=== PATIENT | female | born 1980 | race Hispanic/Latino ===

== ENCOUNTER 2023-12-07 20:24 | Emergency (ER) | payer MEDICAID, SELFPAY ==
[2023-12-07 20:29] VITALS: BP 123/90
[2023-12-07 20:52] VITALS: BMI 19.0
[2023-12-07] MEDS: ZOFRAN ODT (ORALLY DISINTEGRATING) 4 MG PO (21:22)
--- NOTE | 2023-12-07 21:24 | ED.GENMED ---
History of Present Illness
General
Chief Complaint: Withdrawal Symptoms
Source: patient
Exam Limitations: none
Time Seen by Provider: 12/07/23 20:56
Nursing documentation reviewed up to this point in time: agreed with
History of Present Illness
History of Present Illness:
43-year-old female long history of narcotic use, previously on heroin had been maintained on methadone, admitted to [facility] recently with a stroke with left-sided weakness and possible seizure, was switched to Suboxone, tells me she believes
that she is withdrawing because she is not getting enough was told that she will have an increased dose starting tomorrow, feels nauseous that she cannot vomit body aches similar to her prior narcotic withdrawal
10:12 PM reviewed with sister at bedside, patient was just discharged from [facility] earlier today, daughter picked her up, not given any prescriptions for plan per the sister, has no meds for her chronic narcotic use
Past History
Past History
ED Past Medical History: HTN and Psychiatric
ED Past Surgical History: None
Social History
Tobacco: Smoker
Alcohol: None
Drug: Narcotics and IVDA
Personal: Single
Living: with family
Review of Systems
Review of Systems
All Other Systems: Not applicable
Constitutional: Reports fatigue
EENT: Reports no symptoms
Respiratory: Reports no symptoms
Cardiac: Reports no symptoms
ABD/GI: Reports nausea and vomiting
: Reports no symptoms
Musculoskeletal: Reports muscle pain and muscle stiffness
Skin: Reports no symptoms
Neurological: Reports weakness
Phy Exam
Physical Exam
Physical Exam:
Physical Exam
General: 43 female appears older than stated age
Neck: No jaundice
Heart: Regular
Lungs: no acute respiratory distress.
Abdomen: Nontender
Neuro: alert and oriented. Left-sided weak
Skin: no rash
Psychiatric: cooperative
Extremities: No cyanosis
Course
Orders/Labs/Results
Orders:
Orders
12/07/23 21:15
Ondansetron Injectable [Zofran] 4 mg IV NOW STA
12/07/23 21:18
Alcohol Urgent
Basic Metabolic Panel Urgent
Complete Blood Count/With Diff Urgent
Fentanyl, Urine Urgent
Urine Drug Abuse Screen Urgent
Date Specimen was Collected: 12/07/23
Time Specimen was Collected: 20:51
12/07/23 21:21
Ondansetron Orally Disint [Zofran Odt (Orally Disintegrating)] 4 mg .ROUTE .STK-MED ONE
Ondansetron Orally Disint [Zofran Odt (Orally Disintegrating)] 4 mg PO NOW STA
12/07/23 22:09
Buprenorphine [Subutex] 8 mg SL NOW STA
Abnormal Lab Results
12/07/23
21:18
WBC 12.4 H 10^3/uL
(4.8-10.8)
RBC 3.71 L 10^6/uL
(4.20-5.40)
Hgb 11.4 L g/dL
(12.0-16.0)
Hct 32.0 L %
(37.0-47.0)
Plt Count 449 H 10^3/uL
(130-400)
Abs Immat Gran (auto) 0.1 H 10^3/uL
(0-0.05)
Absolute Neuts (auto) 9.4 H 10^3/uL
(1.4-6.5)
Absolute Monos (auto) 0.8 H 10^3/uL
(0.1-0.6)
Neutrophils % 75.6 H %
(42.2-75.2)
Lymphocytes % 15.7 L %
(20.5-51.1)
Glucose 109 H mg/dl
(70-99)
Urine Methadone Screen Positive H
(Negative)
Urine Fentanyl Screen Positive H
(Negative)
12/07/23 21:18
12/07/23 21:18
Vital Signs
Initial and Last Documented VS:
Initial Vital Signs
Temp Pulse Resp BP Pulse Ox
98.2 F 118 18 123/90 98
12/07/23 20:29 12/07/23 20:29 12/07/23 20:29 12/07/23 20:29 12/07/23 20:29
Last Documented Vital Signs
Temp Pulse Resp BP Pulse Ox
98.2 F 108 18 120/82 99
12/07/23 20:29 12/07/23 21:59 12/07/23 21:59 12/07/23 21:59 12/07/23 21:59
MDM/Problems Addressed
Differential Diagnosis Includes:
Narcotic withdrawal narcotic dependence, dehydration electrolyte abnormality
MDM/Problems Addressed:
Nausea narcotic withdrawal
Chronic conditions affecting care: Neurological disorder and Psychiatric illness
Acute Exacerbation and/or Progression of Chronic Illness: Neurological disorder and Psychiatric illness
*Pulse Oximetry
Patient hypoxic: no
*Critical Care Note
Total Time (30-74mins, 75-104mins- exclusive of procedures): Not Applicable
Update Note
Update Note:
Update patient chronically ill appearing, states has been on a low dose Subutex, previously on methadone she states her symptoms are fairly well-controlled on methadone although she did relapse prior to her admission to [facility], I was audrey with her
that I will not be changing her dose of her chronic narcotics this evening, will try to get her more comfortable, encouraged her to follow-up with her providers at [facility]
Junior winkler has been notified
Outpatient arrangements preliminarily have been arranged to [facility] and talk with her sister
ED Attending Note
-
Portions of this chart may have been created with voice recognition software.� Occasional wrong word or��sound alike� substitutions may have occurred due to the inherent limitations of voice recognition software.
Discharge Plan
Departure
Patient Disposition: Home (Routine Discharge)
Date of Disposition: 12/07/23
Time of Disposition: 22:24
Patient with high blood pressure during this ER visit?: No
Condition: Good
Discharge Problem:
Narcotic withdrawal
Instructions: Drug Misuse and Addiction (DC)
Prescriptions:
No Action
methadone [Methadose] 100 MG/10 ML concentrate
150 mg PO DAILY
Referrals:
NONE,* [Family Provider] -
Interventions
Interventions:
*Risk Screen - Suicide Last Done: 12/07/23 20:29
*General Assessment Last Done: 12/07/23 20:29
*Neglect/Abuse Screening Last Done: 12/07/23 20:29
ED- Neurological Assessment Last Done: 12/07/23 20:52
ED-Psychological Assessment Last Done: 12/07/23 21:59
Discharge Date and Time
Print Language: KYRGYZ
[2023-12-07 21:33] LABS: % Immature Granulocytes 0.5 % (0-0.5); % Lymphocytes 15.7 % (20.5-51.1); % Monocytes 6.2 % (1.7-9.3); % Neutrophils 75.6 % (42.2-75.2); Absolute Basophils 0.1 10^3/uL (0-0.2); Absolute Eosinophils 0.1 10^3/uL (0-0.7); Absolute Immature Granulocytes 0.1 10^3/uL (0-0.05); Absolute Monocytes 0.8 10^3/uL (0.1-0.6); Absolute Neutrophils 9.4 10^3/uL (1.4-6.5); Hemoglobin 11.4 g/dL (12.0-16.0); Mean Corp Hgb Conc. 35.6 g/dL (33.0-37.0); Mean Corpuscular Hgb 30.7 pg (27.0-31.0); Mean Corpuscular Volume 86.3 fL (81.0-99.0); Nucleated Red Blood Cells % 0 %; Red Blood Cell Count 3.71 10^6/uL (4.20-5.40); Red Cell Dist. Width 14.3 % (11.5-14.5); White Blood Cell Count 12.4 10^3/uL (4.8-10.8)
[2023-12-07 21:43] LABS: Amphetamines Negative (Negative); Barbiturates Negative (Negative); Benzodiazepines Negative (Negative); Buprenorphine Negative (Negative); Cocaine Negative (Negative); Marijuana Negative (Negative); Methadone Positive (Negative); Methamphetamines Negative (Negative); Opiates Negative (Negative); Phencyclidine Negative (Negative); Tricyclic Antidepressants Negative (Negative)
[2023-12-07 21:44] LABS: Alcohol None Detected; Blood Urea Nitrogen 13 mg/dl (7-17); Calcium 9.4 mg/dl (8.4-10.2); Carbon Dioxide 22 mmol/L (22-30); Chloride 104 mmol/L (98-107); Estimated Creatinine Clearance 88 ml/min; Glucose 109 mg/dl (70-99); Potassium 4.5 mmol/L (3.5-5.1); Sodium 139 mmol/L (135-145); eGFR > 60.00
[2023-12-07 21:45] LABS: Mean Platelet Volume 9.5 fL (7.4-10.4); Platelet Count 449 10^3/uL (130-400)
[2023-12-07 21:59] VITALS: BP 120/82
[2023-12-07 22:02] LABS: Fentanyl, Urine Positive (Negative)
[2023-12-07] MEDS: SUBUTEX 8 MG SL (22:20)
== END 2023-12-07 22:50 | disposition home or self-care (01) ==
LOC: EMR 20:24
PROVIDERS: EMERGENCY PHYSICIAN Emergency Medicine
DX: F11.23 Opioid dependence with withdrawal (principal); F17.200 Nicotine dependence, unspecified, uncomplicated; I10 Essential (primary) hypertension; I69.354 Hemiplegia and hemiparesis following cerebral infarction affecting left non-dominant side
CPT/HCPCS: 99283; 80048; 80306; 80307; 82077; 85025

== ENCOUNTER 2023-12-08 11:27 | Emergency (ER) | payer MEDICAID, SELFPAY ==
[2023-12-08 11:29] VITALS: BP 109/68
--- NOTE | 2023-12-08 14:09 | ED.GENMED ---
History of Present Illness
General
Chief Complaint: Withdrawal Symptoms
Source: patient and family
Time Seen by Provider: 12/08/23 12:45
History of Present Illness
History of Present Illness:
43-year-old female who presents complaining of feeling like 'shit'. Patient was recently released from the hospital and was getting methadone there. She presented to the ER yesterday in withdrawal. She states she got Subutex and felt better but
symptoms came on again early this morning. Patient has not been able to connect with longer-term management since it is a holiday weekend. Patient reports feeling body aches and nausea. She does state that the 8 mg from yesterday worked well at
the time
Past History
Past History
ED Past Medical History: HTN and Psychiatric (Bipolar disorder, substance abuse)
ED Past Surgical History: Gynecological and Orthopedic
Social History
Tobacco: Smoker
Alcohol: None
Drug: Narcotics and IVDA
Personal: Single
Living: with family
Phy Exam
Physical Exam
Physical Exam:
CONSTITUTIONAL Vital signs reviewed, Patient alert and oriented to person, place and time. Well-appearing. Slightly restless
HEAD atraumatic, normocephalic.
EYES eyelids normal to inspection, Extraocular muscles intact, Conjunctiva normal, Sclera normal.
NECK normal range of motion, Trachea midline, no jugular venous distention.
RESP no respiratory distress
BACK No obvious deformities
UPPER EXTREMITY Gross Range of motion normal, gross motor strength normal
LOWER EXTREMITY Gross range of motion normal, Gross motor strength normal. Healing wounds to her bilateral lower extremities
NEURO Speech normal, No focal motor deficits include, Nick coma scale 15, Memory normal, Cranial Nerves intact to screening exam.
SKIN Skin warm, dry, and normal in color.
Course
Orders/Labs/Results
Orders:
Orders
12/08/23 14:08
Buprenorphine [Subutex] 8 mg SL NOW STA
Vital Signs
Initial and Last Documented VS:
Initial Vital Signs
Temp Pulse Resp BP Pulse Ox
98.0 F 114 20 109/68 100
12/08/23 11:12/08/23 11:12/08/23 11:12/08/23 11:12/08/23 11:29
Last Documented Vital Signs
Temp Pulse Resp BP Pulse Ox
98.0 F 114 20 109/68 100
12/08/23 11:29 12/08/23 11:29 12/08/23 11:12/08/23 11:12/08/23 11:29
MDM/Problems Addressed
MDM/Problems Addressed:
Opiate withdrawal
*Pulse Oximetry
Patient hypoxic: no
*Critical Care Note
Total Time (30-74mins, 75-104mins- exclusive of procedures): Not Applicable
Data Reviewed
Source: patient and family
Patient Management
Escalation/DeEscalation of care consider admission/obs:
Patient seen by [facility] and arranged for longer-term treatment starting tomorrow. They sent a referral in and will follow-up with her tomorrow. Will give short term dosing of buprenorphine to manage her until she is more stable.
ED Attending Note
-
Portions of this chart may have been created with voice recognition software.� Occasional wrong word or��sound alike� substitutions may have occurred due to the inherent limitations of voice recognition software.
Discharge Plan
Departure
Patient Disposition: Home (Routine Discharge)
Date of Disposition: 12/08/23
Time of Disposition: 14:13
Patient with high blood pressure during this ER visit?: No
Discharge Problem:
Opiate withdrawal
Instructions: Drug Withdrawal (DC)
Prescriptions:
New
buprenorphine HCl 8 mg tablet, sublingual
8 mg sublingual BID Qty: 10 0RF
No Action
methadone [Methadose] 100 MG/10 ML concentrate
150 mg PO DAILY
Referrals:
NONE,* [Family Provider] -
Activity Restrictions/Additional Instructions:
Please follow-up as advised by MARICARMEN tomorrow.
Interventions
Interventions:
ED- Neurological Assessment Last Done: 12/08/23 14:11
ED-Psychological Assessment Last Done: 12/08/23 14:11
Discharge Date and Time
Print Language: NEPALI
[2023-12-08] MEDS: SUBUTEX 8 MG SL (14:20)
[2023-12-08 14:21] VITALS: BP 113/65
== END 2023-12-08 14:38 | disposition home or self-care (01) ==
LOC: EMR 11:27
PROVIDERS: EMERGENCY PHYSICIAN Emergency Medicine
DX: F11.23 Opioid dependence with withdrawal (principal); F17.200 Nicotine dependence, unspecified, uncomplicated; I10 Essential (primary) hypertension
CPT/HCPCS: 99283